=== PATIENT | female | born 1985 | race Two or more races ===

== ENCOUNTER → 2024-11-03 | Outpatient (CLI) | payer MEDICAID, SELFPAY ==
--- NOTE | 2024-11-03 13:45 | XR_ITS ---
Examination: Screening digital mammography, bilateral Computer aided detection 3-D breast Tomosynthesis, bilateral Date and time of exam: 11/03/2024, 1:53 PM Comparisons: Baseline exam Indications: Screening Technique: Nonmagnified MLO, CC views of the breasts to been obtained, reconstructed from 3-D Tomosynthesis images. R2 computer aided detection program utilized for evaluation of suspicious masses and/or abnormal calcifications. 3-D Tomosynthesis images obtained. Technologist: Findings: The breasts are heterogeneously dense, which may obscure small masses. No evidence of abnormal masses or suspicious calcifications. Impression: BI-RADS category 1: Negative findings (within normal) Recommend 1 year follow-up mammogram
== END | disposition home or self-care (01) ==
LOC: CDIM 13:44
PROVIDERS: Referring Provider Nurse Practitioner Primary Care; Visit Provider Nurse Practitioner Primary Care
DX: Z12.31 Encounter for screening mammogram for malignant neoplasm of breast (principal); R92.313 Mammographic fatty tissue density, bilateral breasts
CPT/HCPCS: 77063; 77067

== ENCOUNTER → 2025-04-08 | Outpatient (CLI) | payer MEDICAID, SELFPAY ==
--- NOTE | 2025-04-08 15:00 | XR_ITS ---
Examination: Pelvic ultrasound, transabdominal, complete Technique: Transabdominal ultrasound of the pelvis performed using grayscale imaging Date and time of exam: April 08, 2025 1829 hours INDICATIONS: Irregular heavy menses 2 months. FINDINGS: Uterus 8.4 cm, mild fluid versus blood in the endometrium in the fundus and cervix No discrete uterine mass Endometrial stripe 1.0 cm Right ovary 3.3 cm arterial flow 17 x 21 mm cyst Left ovary 2.3 cm arterial flow IMPRESSION: Mild fluid in the endometrium at the fundus and cervix
--- NOTE | 2025-04-08 15:00 | XR_ITS ---
Examination: Transvaginal ultrasound of the pelvis, complete Technique: Transvaginal sonographic images pelvis performed using marcus scale imaging Exam date and time: April 08, 2025, 1540 hours INDICATIONS: Irregular heavy menses 2 months. FINDINGS: Uterus 9.0 cm, mild fluid in the endometrium at the fundus and cervix Endometrial stripe 0.9 cm No uterine mass Right ovary 3.6 cm arterial flow 20 mm cyst Left ovary 2.4 cm arterial flow IMPRESSION: Mild fluid in the endometrium, at the fundus and cervix.
== END | disposition home or self-care (01) ==
PROVIDERS: PCP Nurse Practitioner Primary Care; Referring Provider Nurse Practitioner Primary Care; Visit Provider Nurse Practitioner Primary Care
DX: N92.6 Irregular menstruation, unspecified (principal)
CPT/HCPCS: 76830; 76856

== ENCOUNTER → 2025-05-12 | Outpatient (CLI) | payer MEDICAID, SELFPAY ==
--- NOTE | 2025-05-12 16:43 | XR_ITS ---
EXAMINATION: PA lateral chest 2 views TECHNIQUE: Upright PA lateral chest 2 views Date and time: May 12, 2025, 1659 hours INDICATIONS: TB screening study today FINDINGS: Normal heart size. Lungs are clear. The osseous structures are intact. IMPRESSION: No active disease No radiographic findings of active tuberculosis
== END | disposition home or self-care (01) ==
PROVIDERS: PCP Nurse Practitioner Primary Care; Referring Provider Nurse Practitioner Primary Care; Visit Provider Nurse Practitioner Primary Care
DX: Z11.1 Encounter for screening for respiratory tuberculosis (principal)
CPT/HCPCS: 71046

== ENCOUNTER → 2025-06-16 | Outpatient (CLI) | payer MEDICAID, SELFPAY ==
--- NOTE | 2025-06-16 14:00 | XR_ITS ---
Examination: Transvaginal ultrasound of the pelvis, complete Technique: Transvaginal sonographic images pelvis performed using marcus scale imaging Exam date and time: June 16, 2025, 1435 hours INDICATIONS: Irregular menses 2 months FINDINGS: Right ovary 8.5 cm endometrial stripe 0.5 cm Minimal fluid in the endometrium No discrete uterine mass Right ovary 2.2 cm arterial flow 13 mm follicular cyst Left ovary 2.7 cm arterial flow IMPRESSION: No discrete uterine mass.
--- NOTE | 2025-06-16 14:00 | XR_ITS ---
Examination: Pelvic ultrasound, transabdominal, complete Technique: Transabdominal ultrasound of the pelvis performed using grayscale imaging Date and time of exam: June 16, 2025, 1428 hours INDICATIONS: Irregular menses 2 months. FINDINGS: Uterus 8.0 cm endometrial stripe 0.8 cm No discrete uterine mass Right ovary 2.8 cm arterial flow Left ovary 2.4 cm arterial flow IMPRESSION: No discrete uterine mass, please see the transvaginal pelvic sonogram report
== END | disposition home or self-care (01) ==
LOC: CDIM 14:07
PROVIDERS: PCP Nurse Practitioner Primary Care; Referring Provider Nurse Practitioner Primary Care; Visit Provider Nurse Practitioner Primary Care
DX: N85.9 Noninflammatory disorder of uterus, unspecified (principal)
CPT/HCPCS: 76830; 76856